=== PATIENT | female | born 1995 | race Caucasian/White ===

== ENCOUNTER 2024-04-17 19:37 | Inpatient (IN) | payer BC ==
[2024-04-17] MEDS ORDERED: Nalbuphine 10 MG/ML Syringe IVPUSH PRN (20:11)
[2024-04-17] MEDS ORDERED: Sodium Chloride 0.9% 10 ML Syringe FLUSH PRN (20:11)
[2024-04-17] MEDS ORDERED: Ondansetron 4 MG/2 ML SDV IVPUSH PRN (20:11)
[2024-04-17] MEDS ORDERED: Lidocaine 1% 50 ML MDV INJECT PRN (20:11)
[2024-04-17] MEDS ORDERED: Oxytocin/Lactated Ringers 30 UNIT/500 ML BAG IV SCH (20:15)
[2024-04-17 20:31] LABS: BASOPHILS PERCENT AUTO 0.3 % (0.0-1.0); EOSINOPHILS PERCENT AUTO 0.1 % (0.0-6.0); HEMOGLOBIN 11.8 gm/dl (12.0-16.0); IMMATURE GRAN ABSOLUTE AUTO 0.04 K/mm3 (0.00-0.05); IMMATURE GRAN PERCENT AUTO 0.3 % (0.0-0.4); LYMPHOCYTES ABSOLUTE AUTO 1.4 K/mm3 (1.0-4.8); LYMPHOCYTES PERCENT AUTO 10.1 % (24.0-44.0); MEAN CORPUSCULAR HEMOGLOBIN 29.9 pg (28.0-32.0); MEAN CORPUSCULAR HGB CONC 33.7 g/dl (32.0-36.0); MEAN CORPUSCULAR VOLUME 88.8 fl (83.0-99.0); MEAN PLATELET VOLUME 11.4 fl (9.4-12.3); MONOCYTES ABSOLUTE AUTO 0.5 K/mm3 (0.0-0.8); MONOCYTES PERCENT AUTO 3.1 % (0.0-8.0); NEUTROPHILS ABSOLUTE AUTO 12.3 K/mm3 (1.8-7.7); NEUTROPHILS PERCENT AUTO 86.1 % (41.0-71.0); PLATELET COUNT,PLT 230 K/mm3 (150-400); RED BLOOD CELL COUNT 3.94 M/mm3 (4.10-5.30)
[2024-04-17 21:10] LABS: A/G RATIO 0.8 (1-2); ALBUMIN 3.1 g/dl (3.4-5.0); ANION GAP 15.9 (5-15); BILIRUBIN TOTAL 0.7 mg/dL (0.2-1.0); CALCIUM 9.3 mg/dL (8.5-10.1); CREATININE 0.9 mg/dL (0.55-1.02); EST CRCL DRUG DOSING (CG) 68.97 mL/min; POTASSIUM,K 3.9 mEq/L (3.5-5.1); PROTEIN TOTAL,TP 7.2 g/dl (6.4-8.2)
[2024-04-17] MEDS ORDERED: diphenhydrAMINE 50 MG/ML SDV IVPUSH PRN (21:39)
[2024-04-17] MEDS ORDERED: ePHEDrine 50 MG/ML SDV IVPUSH PRN (21:39)
[2024-04-17] MEDS: Lactated Ringers 1,000 ML IV SCH (21:42)
[2024-04-17] MEDS: fentaNYL 100 MCG/2 ML SDV EPIDUR PRN (22:10)
[2024-04-17] MEDS: Bupivacaine/fentaNYL/NS 100 ML Bag EPIDUR PRN (22:10)
[2024-04-18] MEDS ORDERED: Bupivacaine 0.25% 10 ML SDV ONE
[2024-04-18] MEDS: Oxytocin/Lactated Ringers 30 UNIT/500 ML BAG IV SCH (01:11)
[2024-04-18] MEDS ORDERED: Docusate Sodium 100 MG Cap PO PRN (03:50)
[2024-04-18] MEDS ORDERED: Acetaminophen 325 MG Tab PO PRN (03:50)
[2024-04-18] MEDS: Methylergonovine 0.2 MG/1 ML Amp IM PRN (05:34)
[2024-04-18] MEDS: Witch Hazel Medicated Pads 40/Jar TOP PRN (05:46)
[2024-04-18] MEDS: Benzocaine/Menthol 20%-0.5% Spray 78 GM Cannister TOP PRN (05:47)
[2024-04-18] MEDS: Ibuprofen 800 MG Tab PO SCH (05:59)
[2024-04-18] MEDS: Sodium Chloride 0.9% 10 ML Syringe FLUSH SCH (14:05)
[2024-04-19 05:47] LABS: MEAN CORPUSCULAR HEMOGLOBIN 30.8 pg (28.0-32.0); MEAN CORPUSCULAR HGB CONC 34.4 g/dl (32.0-36.0); MEAN CORPUSCULAR VOLUME 89.6 fl (83.0-99.0); MEAN PLATELET VOLUME 10.7 fl (9.4-12.3); PLATELET COUNT,PLT 212 K/mm3 (150-400); RED BLOOD CELL COUNT 3.57 M/mm3 (4.10-5.30); WHITE BLOOD CELL COUNT,WBC 11.99 K/mm3 (3.9-11.3)
== END 2024-04-20 15:20 | disposition home or self-care (01) | DRG 560 ==
LOC: JD.OBCHECK 19:37 → JD.OB 19:42 → JD.OBCHECK 20:14 → JD.OB 20:14 → OBSVTOIN 04-18 03:20 → JD.OB 04-18 03:21
PROVIDERS: ADMIT Obstetrics & Gynecology; ATTEND Obstetrics & Gynecology
PROC: 10E0XZZ Delivery of Products of Conception, External Approach (ICD-10-PCS; principal; 2024-04-18)
PROC: 0HQ9XZZ Repair Perineum Skin, External Approach (ICD-10-PCS; 2024-04-18)
PROC: 10S0XZZ Reposition Products of Conception, External Approach (ICD-10-PCS; 2024-04-18)
PROC: 3E0R3BZ Introduction of Anesthetic Agent into Spinal Canal, Percutaneous Approach (ICD-10-PCS; 2024-04-18)
PROC: 00HU33Z Insertion of Infusion Device into Spinal Canal, Percutaneous Approach (ICD-10-PCS; 2024-04-18)
PROC: 10907ZC Drainage of Amniotic Fluid, Therapeutic from Products of Conception, Via Natural or Artificial Opening (ICD-10-PCS; 2024-04-18)
PROC: 3E033VJ Introduction of Other Hormone into Peripheral Vein, Percutaneous Approach (ICD-10-PCS; 2024-04-18)
DX: O69.81X0 Labor and delivery complicated by cord around neck, without compression, not applicable or unspecified (principal); Z37.0 Single live birth; O72.1 Other immediate postpartum hemorrhage; O70.0 First degree perineal laceration during delivery; Z3A.39 39 weeks gestation of pregnancy
CPT/HCPCS: 36415; 51702; 59025; 59409; 80053; 85025; 85027; 86592; 86850; 86900; 86901; A9270-GY; J0665; J2210; J3010; J3490; J7120; J7999